=== PATIENT | female | born 1945 | race Caucasian/White ===

== ENCOUNTER 2020-12-30 05:40 | Inpatient (IN) | payer MEDICARE ==
[2020-12-30] MEDS ORDERED: Lactated Ringers 1,000 ML IV SCH (06:00)
[2020-12-30] MEDS ORDERED: ceFAZolin 2 GM in Premix Bag 1 BAG IV ONE (06:00)
[2020-12-30] MEDS: Nozin Nasal Sanitizer NASBOTH SCH ×2 (06:18→21:02)
[2020-12-30] MEDS ORDERED: Povidone-Iodine 10% Soln 118.25 ML Bottle ONE (06:51)
[2020-12-30] MEDS ORDERED: Midazolam 1 MG/ML 2 ML SDV ONE (07:20)
[2020-12-30] MEDS ORDERED: Propofol 200 MG/20 ML SDV ONE (07:20)
[2020-12-30] MEDS ORDERED: fentaNYL 100 MCG/2 ML SDV ONE (07:20)
[2020-12-30] MEDS ORDERED: Lactated Ringers 1,000 ML ONE (08:17)
[2020-12-30] MEDS ORDERED: Acetaminophen/HYDROcodone 325-5 MG Tab PO PRN (09:36)
[2020-12-30] MEDS ORDERED: Ondansetron 4 MG/2 ML SDV IVPUSH PRN (09:36)
[2020-12-30] MEDS ORDERED: Acetaminophen 325 MG Tab PO PRN (09:36)
[2020-12-30] MEDS ORDERED: Morphine 2 MG/ML SYRINGE IVPUSH PRN (09:36)
[2020-12-30] MEDS ORDERED: Ketorolac 30 MG/ML SDV IVPUSH PRN (09:36)
[2020-12-30] MEDS ORDERED: Magnesium Hydroxide 400 MG/5 ML Susp 30 ML Cup PO PRN (09:36)
[2020-12-30] MEDS ORDERED: Prochlorperazine 5 MG in Sodium Chloride 0.9% 50 ML IV PRN (09:43)
[2020-12-30] MEDS ORDERED: ceFAZolin 1 GM in Sodium Chloride 0.9% 50 ML IV SCH (09:45)
[2020-12-30] MEDS: Acetaminophen/oxyCODONE 325-5 MG Tab PO PRN ×3 (11:43→21:01)
[2020-12-30] MEDS ORDERED: Metoclopramide 10 MG/2 ML SDV IV PRN (12:12)
[2020-12-30] MEDS: Sodium Chloride 0.9% 1,000 ML IV SCH (14:38)
[2020-12-30] MEDS: ceFAZolin 1 GM in Premix Bag 1 BAG IV SCH (16:14)
[2020-12-30] MEDS ORDERED: Nozin Nasal Sanitizer NASBOTH SCH (21:00)
[2020-12-30] MEDS: Docusate Sodium 100 MG Cap PO SCH (21:00)
[2020-12-30] MEDS ORDERED: Docusate Sodium 100 MG Cap PO SCH (21:00)
[2020-12-31] MEDS: Sodium Chloride 0.9% 1,000 ML IV SCH (00:14)
[2020-12-31] MEDS: ceFAZolin 1 GM in Premix Bag 1 BAG IV SCH ×2 (01:02→09:07)
[2020-12-31] MEDS: Acetaminophen/oxyCODONE 325-5 MG Tab PO PRN ×5 (02:43→21:48)
[2020-12-31] MEDS: Nozin Nasal Sanitizer NASBOTH SCH ×2 (08:01→21:47)
[2020-12-31] MEDS: Enoxaparin 30 MG/0.3 ML Syringe SUBCUT SCH (08:02)
[2020-12-31] MEDS: Hydroxychloroquine 200 MG Tab PO SCH (08:04)
[2020-12-31] MEDS: Docusate Sodium 100 MG Cap PO SCH ×2 (08:04→21:47)
--- NOTE | 2020-12-31 08:40 | PCM.SURGPN ---
- General Info Date of Service: 12/31/20 Date of Surgery/Procedure: 12/30/20 POD#: 1 Post-Op Diagnosis: knee osteoarthritis Admission Diagnosis/Problem: Knee joint operation Functional Status: Reports: Pain Controlled, Tolerating Diet - Review of Systems General: Denies: Fever, Fatigue, Chills HEENT: Denies: Visual Changes Pulmonary: Denies: Shortness of Breath Cardiovascular: Denies: Chest Pain Gastrointestinal: Denies: Nausea, Vomiting Musculoskeletal: Reports: Leg Pain (left ), Joint Pain (left knee ), Joint Swelling (left knee ) Skin: Reports: Bruising Neurological: Reports: No Symptoms Psychiatric: Reports: No Symptoms - Patient Data Vitals - Most Recent: Last Vital Signs Temp 97.3 F 12/31/20 07:10 Pulse 69 12/31/20 07:10 Resp 18 12/31/20 07:10 BP 141/59 H 12/31/20 07:10 Pulse Ox 100 12/31/20 07:10 Weight - Most Recent: 144 lb I&O - Last 24 Hours: Intake & Output 12/30/20 12/31/20 12/31/20 22:59 06:59 14:59 Intake Total 1295 1692 Output Total 125 310 Balance 1170 1382 Lab Results Last 24 Hrs: Laboratory Results - last 24 hr 12/31/20 Range/Units 04:25 WBC 7.1 (4.5-11.0) K/uL RBC 3.40 (3.30-5.50) M/uL Hgb 10.3 L (12.0-15.0) g/dL Hct 32.0 L (36.0-48.0) % MCV 94 (80-98) fL MCH 30 (27-31) pg MCHC 32 (32-36) % Plt Count 148 L (150-400) K/uL Med Orders - Current: Current Medications Acetaminophen (Acetaminophen 325 Mg Tab) 650 mg PO Q4H PRN PRN Reason: Pain/Fever Hydrocodone Bitart/Acetaminophen (Acetaminophen/Hydrocodone 325-5 Mg Tab) 1 tab PO Q4H PRN PRN Reason: Pain (mild 1-3) Bandage/Support Products (Nozin Nasal Wet End Helper) 1 applic NASBOTH BID [facility] Stop: 01/05/21 21:01 Last Admin: 12/31/20 08:01 Dose: 1 applic Documented by: Docusate Sodium (Docusate Sodium 100 Mg Cap) 100 mg PO BID [facility] [place] Last Admin: 12/31/20 08:04 Dose: 100 mg Documented by: Enoxaparin Sodium (Enoxaparin 30 Mg/0.3 Ml Syringe) 30 mg SUBCUT DAILY [facility] [place] Last Admin: 12/31/20 08:02 Dose: 30 mg Documented by: Hydroxychloroquine Sulfate (Hydroxychloroquine 200 Mg Tab) 200 mg PO DAILY [facility] [place] Last Admin: 12/31/20 08:04 Dose: 200 mg Documented by: Sodium Chloride (Normal Saline) 1,000 mls @ 125 mls/hr IV ASDIRECTED [facility] [place] Last Admin: 12/31/20 00:14 Dose: 125 mls/hr Documented by: Cefazolin Sodium/Dextrose 1 gm (/ Premix) 50 mls @ 100 mls/hr IV Q8H [facility] [place] Stop: 12/31/20 09:29 Last Admin: 12/31/20 01:02 Dose: 100 mls/hr Documented by: Ketorolac Tromethamine (Ketorolac 30 Mg/Ml Sdv) 15 mg IVPUSH Q8H PRN PRN Reason: Breakthrough Pain Last Admin: 12/30/20 19:34 Dose: 15 mg Documented by: Magnesium Hydroxide (Magnesium Hydroxide 400 Mg/5 Ml Susp 30 Ml Cup) 30 ml PO BID PRN PRN Reason: Constipation Metoclopramide HCl (Metoclopramide 10 Mg/2 Ml Sdv) 5 mg IV Q6HR PRN PRN Reason: Nausea Morphine Sulfate (Morphine 2 Mg/Ml Syringe) 1 mg IVPUSH Q1H PRN PRN Reason: Breakthrough Pain Oxycodone/Acetaminophen (Acetaminophen/Oxycodone 325-5 Mg Tab) 1 - 2 tab PO Q4H PRN PRN Reason: Pain Last Admin: 12/31/20 07:11 Dose: 1 tab Documented by: Discontinued Medications Docusate Sodium (Docusate Sodium 100 Mg Cap) 100 mg PO BID [facility] [place] Enoxaparin Sodium (Enoxaparin 30 Mg/0.3 Ml Syringe) 30 mg SUBCUT DAILY [facility] [place] Fentanyl (Fentanyl 100 Mcg/2 Ml Sdv) Confirm Administered Dose 100 mcg .ROUTE .STK-MED ONE Stop: 12/30/20 07:21 Hydroxychloroquine Sulfate (Hydroxychloroquine 200 Mg Tab) 200 mg PO DAILY [facility] [place] Lactated Ringer's (Ringers, Lactated) 1,000 mls @ 75 mls/hr IV ASDIRECTED [facility] [place] Last Admin: 12/30/20 06:40 Dose: 75 mls/hr Documented by: Cefazolin Sodium/Dextrose 2 gm (/ Premix) 50 mls @ 100 mls/hr IV ONETIME ONE Stop: 12/30/20 06:29 Last Admin: 12/30/20 07:52 Dose: 100 mls/hr Documented by: Lactated Ringer's (Ringers, Lactated) Confirm Administered Dose 1,000 mls @ as directed .ROUTE .STK-MED ONE Stop: 12/30/20 08:18 Cefazolin Sodium 1 gm/ Sodium (Chloride) 50 mls @ 200 mls/hr IV Q8H [facility] [place] Stop: 12/31/20 01:59 Last Admin: 12/30/20 10:51 Dose: Not Given Documented by: Prochlorperazine Edisylate 5 (mg/ Sodium Chloride) 51 mls @ 150 mls/hr IV Q6H PRN PRN Reason: Nausea/Vomiting Last Admin: 12/30/20 12:15 Dose: 150 mls/hr Documented by: Midazolam HCl (Midazolam 1 Mg/Ml 2 Ml Sdv) Confirm Administered Dose 2 mg .ROUTE .STK-MED ONE Stop: 12/30/20 07:21 Ondansetron HCl (Ondansetron 4 Mg/2 Ml Sdv) 4 mg IVPUSH Q4H PRN PRN Reason: Nausea/Vomiting Povidone Iodine (Povidone-Iodine 10% Soln 118.25 Ml Bottle) Confirm Administered Dose 1 ml .ROUTE .STK-MED ONE Stop: 12/30/20 06:52 Last Admin: 12/30/20 09:15 Dose: 1 ml Documented by: Propofol (Propofol 200 Mg/20 Ml Sdv) Confirm Administered Dose 200 mg .ROUTE .STK-MED ONE Stop: 12/30/20 07:21 - Exam Wound/Incisions: Healing Well, Drainage (dried drainage ) Quality Assessment: Urine Catheter, DVT Prophylaxis General: Alert, Oriented, Cooperative, No Acute Distress Extremities: Normal Capillary Refill, Pedal Edema, Joint Swelling (left knee ), Leg Pain (left ), Limited Range of Motion (left knee ), Increased Warmth (mild, left knee ), Other (L tibial pulse, 2+). No: Tea's Sign Skin: Warm, Dry, Intact, Ecchymosis, Other (incision well approximated with no surrounding erythema. Dried drainage on steristrips, no active drainage from incision. ) Neurological: No New Focal Deficit Psy/Mental Status: Alert, Normal Affect, Normal Mood Sepsis Event Note - Evaluation Sepsis Screening Result: No Definite Risk - Focused Exam Vital Signs: Vital Signs Temp Pulse Resp BP Pulse Ox 12/31/20 07:10 97.3 F 69 18 141/59 H 100 12/31/20 02:42 99.0 F 73 18 132/58 L 97 12/30/20 23:21 99.3 F 71 18 140/60 92 L 12/30/20 21:04 99.5 F - Problem List & Annotations (1) Status post total left knee replacement SNOMED Code(s): 1139439539940, 1004887593972 Code(s): Z96.652 - PRESENCE OF LEFT ARTIFICIAL KNEE JOINT Status: Acute Current Visit: Yes (2) Postoperative anemia SNOMED Code(s): 746830560, 593894299 Code(s): D64.9 - ANEMIA, UNSPECIFIED Status: Acute Current Visit: Yes - Problem List Review Problem List Initiated/Reviewed/Updated: Yes - My Orders Last 24 Hours: Active Orders 24 hr Category Date Time Status Patient Status [ADT] Routine ADT 12/30/20 09:36 Active Ambulate [RC] QID Care 12/30/20 09:36 Active Antiembolic Devices [RC] .Routine Care 12/30/20 09:36 Active Head of Bed Elevation [RC] ASDIRECTED Care 12/30/20 09:36 Active Intake and Output [RC] QSHIFT Care 12/30/20 09:36 Active May Shower [RC] ASDIRECTED Care 12/30/20 09:36 Active Neurovascular Check [RC] Q4H Care 12/30/20 09:36 Active Notify Provider Vital Signs [RC] ASDIRECTED Care 12/30/20 09:36 Active Oxygen Therapy [RC] PRN Care 12/30/20 09:36 Active RT Incentive Spirometry [RC] Q1HWA Care 12/30/20 09:36 Active Up to Chair [RC] QID Care 12/30/20 09:36 Active Up to Chair [RC] QID Care 12/30/20 09:36 Active VTE/DVT Education [RC] Click to Edit Care 12/30/20 09:36 Active Vital Signs [RC] Q4H Care 12/30/20 09:36 Active Wound Care [RC] Q12H Care 12/30/20 09:36 Active Consult to Case Management/Distribution Center Assistant [CONS] Cons 12/30/20 09:36 Active Routine OT Evaluation and Treatment [CONS] Routine Cons 12/30/20 09:36 Active PT Evaluation and Treatment [CONS] Routine Cons 12/30/20 09:36 Active PT Evaluation and Treatment [CONS] Routine Cons 12/30/20 09:36 Active Regular Diet [DIET] Diet 12/30/20 Breakfast Active Knee 1V or 2V Lt [CR] Routine Exams 12/30/20 09:35 Taken Acetaminophen [TylenoL] Med 12/30/20 09:36 Active 650 mg PO Q4H PRN Acetaminophen/HYDROcodone [[place] 325-5 MG] Med 12/30/20 09:36 Active 1 tab PO Q4H PRN Acetaminophen/oxyCODONE [Percocet 325-5 MG] Med 12/30/20 09:36 Active 1 - 2 tab PO Q4H PRN Docusate Sodium [Colace] Med 12/30/20 21:00 Active 100 mg PO BID Enoxaparin [Lovenox] Med 12/31/20 09:00 Active 30 mg SUBCUT DAILY Hydroxychloroquine [Plaquenil] Med 12/31/20 09:00 Active 200 mg PO DAILY Ketorolac [Toradol] Med 12/30/20 09:36 Active 15 mg IVPUSH Q8H PRN Magnesium Hydroxide [Milk of Magnesia] Med 12/30/20 09:36 Active 30 ml PO BID PRN Metoclopramide [Reglan] Med 12/30/20 12:12 Active 5 mg IV Q6HR PRN Morphine Med 12/30/20 09:36 Active 1 mg IVPUSH Q1H PRN Sodium Chloride 0.9% [Normal Saline] 1,000 ml Med 12/30/20 09:45 Active IV ASDIRECTED ceFAZolin [Ancef] 1 gm Med 12/30/20 17:00 Active Premix Bag 1 bag IV Q8H Antiembolic Hose [OM.PC] Routine Ot 12/30/20 09:36 Ordered DVT/VTE Prophylaxis Reflex [OM.PC] Routine Ot 12/30/20 09:36 Ordered Ice Therapy [OM.PC] Per Unit Routine Ot 12/30/20 09:36 Ordered Medication Continuation Instructions [OM.PC] Per Unit Ot 12/30/20 09:36 Ordered Routine Oral Care [OM.PC] Routine Ot 12/30/20 09:36 Ordered Sequential Compression Device [OM.PC] Routine Ot 12/30/20 09:36 Ordered Weight bearing status [OM.PC] Routine Ot 12/30/20 09:44 Ordered Resuscitation Status Routine Resus Stat 12/30/20 09:36 Ordered Medication Orders Acetaminophen (Acetaminophen 325 Mg Tab) 650 mg PO Q4H PRN PRN Reason: Pain/Fever Hydrocodone Bitart/Acetaminophen (Acetaminophen/Hydrocodone 325-5 Mg Tab) 1 tab PO Q4H PRN PRN Reason: Pain (mild 1-3) Bandage/Support Products (Nozin Nasal Wet End Helper) 1 applic NASBOTH BID [facility] [place] Stop: 01/05/21 21:01 Last Admin: 12/31/20 08:01 Dose: 1 applic Documented by: Admin: 12/30/20 21:02 Dose: 1 applic Documented by: Admin: 12/30/20 06:18 Dose: 1 applic Documented by: SUDHEER Docusate Sodium (Docusate Sodium 100 Mg Cap) 100 mg PO BID [facility] [place] Last Admin: 12/31/20 08:04 Dose: 100 mg Documented by: Admin: 12/30/20 21:00 Dose: 100 mg Documented by: PADMINI Enoxaparin Sodium (Enoxaparin 30 Mg/0.3 Ml Syringe) 30 mg SUBCUT DAILY [facility] [place] Last Admin: 12/31/20 08:02 Dose: 30 mg Documented by: JOSELIN Hydroxychloroquine Sulfate (Hydroxychloroquine 200 Mg Tab) 200 mg PO DAILY [facility] [place] Last Admin: 12/31/20 08:04 Dose: 200 mg Documented by: JOSELIN Sodium Chloride (Normal Saline) 1,000 mls @ 125 mls/hr IV ASDIRECTED [facility] [place] Last Admin: 12/31/20 00:14 Dose: 125 mls/hr Documented by: Infusion: 12/30/20 22:38 Dose: 125 mls/hr Documented by: Admin: 12/30/20 14:38 Dose: 125 mls/hr Documented by: TK Cefazolin Sodium/Dextrose 1 gm (/ Premix) 50 mls @ 100 mls/hr IV Q8H [facility] Stop: 12/31/20 09:29 Last Admin: 12/31/20 01:02 Dose: 100 mls/hr Documented by: Infusion: 12/30/20 16:44 Dose: 100 mls/hr Documented by: Admin: 12/30/20 16:14 Dose: 100 mls/hr Documented by: SHERI Ketorolac Tromethamine (Ketorolac 30 Mg/Ml Sdv) 15 mg IVPUSH Q8H PRN PRN Reason: Breakthrough Pain Last Admin: 12/30/20 19:34 Dose: 15 mg Documented by: PADMINI Magnesium Hydroxide (Magnesium Hydroxide 400 Mg/5 Ml Susp 30 Ml Cup) 30 ml PO BID PRN PRN Reason: Constipation Metoclopramide HCl (Metoclopramide 10 Mg/2 Ml Sdv) 5 mg IV Q6HR PRN PRN Reason: Nausea Morphine Sulfate (Morphine 2 Mg/Ml Syringe) 1 mg IVPUSH Q1H PRN PRN Reason: Breakthrough Pain Oxycodone/Acetaminophen (Acetaminophen/Oxycodone 325-5 Mg Tab) 1 - 2 tab PO Q4H PRN PRN Reason: Pain Last Admin: 12/31/20 07:11 Dose: 1 tab Documented by: Admin: 12/31/20 02:43 Dose: 1 tab Documented by: Admin: 12/30/20 21:01 Dose: 2 tab Documented by: Admin: 12/30/20 16:01 Dose: 2 tab Documented by: Admin: 12/30/20 11:43 Dose: 2 tab Documented by: SHERI - Assessment Assessment (Free Text/Narrative):: Patient is a pleasant 75-year-old female, status post left total knee replacement, postop day #1. Patient tolerated surgery well with no acute events overnight. Patient remains hemodynamically stable. Postop day #1 hemoglobin declined to 10.3. Patient has been asymptomatic with this, denied lightheadedness, vision changes, nor shortness of breath. Patient also denied subjective fevers, chills, chest pain, nor palpitations. Pain has been relatively well controlled on current regimen. Notes she slept fairly well last night without disruption from left knee pain. Patient denied nausea or emesis. Does endorse decreased appetite, but accepting of a protein shake this morning. Patient did transfer from bed to chair following surgery yesterday afternoon with x1 assist and four-wheel walker. Has not ambulated further than transfer from bed to chair. Denied numbness or tingling to left lower extremity. Denied calf pain. Left knee dressing did have dried drainage on urvashi wrap this morning. Dressing was removed, left knee cleaned, and new dressing applied. Patient requires inpatient status at this time to progress ambulation abilities and functional mobility of left lower extremity. Patient also needs to safely complete stairs, as she does have a flight of stairs within home to reach her bedroom. Additionally, patient requires further monitoring of postoperative anemia. Plan: * Patient to participate in physical and occupational therapy sessions daily while in the hospital. * Pending progress with physical therapy this morning on ambulation distance, may remove Dunn catheter if patient is able to ambulate safely to the bathroom. * Post-operative anemia stable at this time. Will continue to monitor for symptoms and recheck CBC if patient becomes symptomatic. * Discontinue IV maintenance fluids. * Continue with current pain regimen. * Continue with bilateral lower extremity SCDs for mechanical DVT/VTE prophylaxi s and 30 mg subcutaneous Lovenox for chemical DVT/VTE prophylaxis. * Continue with every 4 hours vital monitoring assessment. * Anticipate discharge to home with outpatient physical therapy services when patient is medically stable and functional mobility of left lower extremity improves. Patient has already arranged outpatient physical therapy services with [facility].
[2020-12-31] MEDS ORDERED: Hydroxychloroquine 200 MG Tab PO SCH (09:00)
[2020-12-31] MEDS ORDERED: Enoxaparin 30 MG/0.3 ML Syringe SUBCUT SCH (09:00)
--- NOTE | 2020-12-31 13:26 | CRLCR ---
For Patients: As a result of the Cures Act, medical imaging exams and procedure reports are released immediately into your electronic medical record. You may view this report before your referring provider. If you have questions, please contact your health care provider. INDICATION: Status post left total knee arthroplasty TECHNIQUE: Knee radiograph 2 views left on 3 films COMPARISON: 11/14/2019 FINDINGS: Bone: No acute fractures or aggressive bone lesions are identified. Joint: The patient is status post a total knee arthroplasty with patellar resurfacing. No radiographic evidence of asymmetric polyethylene wear, prosthetic loosening or infection is seen. No significant knee effusion is seen. Soft tissue: Anterior skin, subcutaneous gas and joint gas are present from recent surgery. No radiopaque foreign bodies are seen. IMPRESSION: 1. There is an unremarkable postoperative appearance of the knee arthroplasty. Dictated by: Steve Lugo MD @ 12/31/2020 13:25:14 (Electronically Signed)
[2021-01-01] MEDS: Acetaminophen/oxyCODONE 325-5 MG Tab PO PRN ×2 (08:41→12:56)
--- NOTE | 2021-01-01 09:24 | PCM.DCSUM1 ---
Discharge Summary - Hospital Course HPI Initial Comments: Libby 75 y/o female with a history of left knee osteoarthritis. Symptoms were refractory to conservative treatments and she elected to undergo left total knee arthroplasty. Surgery performed on 12/30/20. Patient tolerated surgery well with no complications. No acute events in the post-operative hospitalization period. Diagnosis: Stroke: No Modified Aura Scale: No Symptoms at All Modified Aura Scale Score: 0 - Discharge Data Discharge Date: 01/01/21 Discharge Disposition: Home, Self-Care 01 Condition: Good - Referral to Home Health Date of Face to Face Encounter: 01/01/21 Primary Care Physician: Erica Hurtado MD - Discharge Diagnosis/Problem(s) (1) Status post total left knee replacement SNOMED Code(s): 1658568879015, [id number] ICD Code: Z96.652 - PRESENCE OF LEFT ARTIFICIAL KNEE JOINT Status: Acute Current Visit: Yes (2) Postoperative anemia SNOMED Code(s): 822665146, [id number] ICD Code: D64.9 - ANEMIA, UNSPECIFIED Status: Acute Current Visit: Yes - Patient Summary/Data Operative Procedure(s) Performed: left total knee arthroplasty Consults: Consultations 12/30/20 09:36 Consult to Case Management/Therapeutic Consultant [CONS] Routine Comment: Physician Instructions: Service(s) to be Consulted: Case Management Reason for Consult: Plan for Discharge Special Instructions: anticipate dc to home with outpatient PT OT Evaluation and Treatment [CONS] Routine Please Evaluate and Treat. OT Reason for Consult: ADL's Special Instructions: s/p L TKA. Progress functional mobility of LLE. This query below is only for informational purposes and is not editable. PT Evaluation and Treatment [CONS] Routine Please Evaluate and Treat. PT Reason for Consult: Post op Ortho Surgery Special Instructions: s/p L TKA. May WBAT. Progress ROM and strengthening to LLE. Patient does have a flight of stairs at home, please work with stairs prior to dc. This query below is only for informational purposes and is not editable. PT Evaluation and Treatment [CONS] Routine Please Evaluate and Treat. PT Reason for Consult: Post op Ortho Surgery Knee Pending Discharge: Yes, 1- 2 days Special Instructions: Schedule first outpatient PT appointment in 3-5 day post discharge. This query below is only for informational purposes and is not editable. Hospital Course: Patient is a pleasant 75 y/o female, s/p left total knee arthroplasty, POD#2. Patient tolerated surgery well with no complications. Patient remained hemodynam ically stable in the post-operative hospitalization period. Did have a few elevated blood pressure readings, likely attributed to pain, but all other vitals remained within acceptable limits. Post-operative HgB declined to 10.3. Patient was asymptomatic with this; denied lightheadedness with positional changes, dyspnea, nor vision changes. Patient also denied subjective fevers, chills, and fatigue. Pain has been well controlled throughout hospitalization with Percocet. Patient has had decreased appetite. Had some nausea the afternoon of surgery, none thereafter. Participated in physical therapy services daily. Ambulation abilities progressed nicely, walking up to 132 ft with FWW and SBA prior to discharge. Is able to transfer from bed to chair with FWW. Was fitted with a proper FWW for home use. Did complete stairs safely prior to discharge. Requires minimal assistance with ADLs. Dunn catheter was removed POD#1. IV maintenance fluids were discontinued POD#1. Did have dried drainage on BRYON wrap morning of POD#1, dressing changes performed POD#1 and #2. Plan: * Discharge to home today. Does have daughter at home for support through next Wednesday, and will be present after. Outpatient PT orders faxed to [facility] per patients request. * Prescription sent to patients preferred pharmacy for pain medication: 5mg- 325mg Percocet, 1-2 tabs PO q6 hrs prn for pain. * Encouraged to continue with stool softener while on opioid pain medication. * Continue to take Nozin spray BID. * Educated to take 1 aspirin BID for DVT/VTE prophylaxis for the following month. * Educated on warning signs of DVT/VTE and SSI; any concerns, please contact the clinic or visit your local ER. * May shower; remove dressing, leave paper tapes on and let water run over the top. They will fall off in 5-7 days. Do not vigorously scrub incision, no submerging incision in bath water. Do not need to place dressing over incision, but may choose to do so if Steristrips are catching on clothing. * Follow up apt scheduled with ortho clinic in 2 weeks. Call if any concerns or questions arise prior to scheduled apt. - Patient Instructions Diet: Usual Diet as Tolerated Activity: Apply Ice, Full Weight Bearing Driving: Do Not Drive Showering/Bathing: May Shower Wound/Incision Care: Keep Operative Site/Wound Site Clean and Dry Notify Provider of: Fever, Increased Pain, Swelling and Redness, Drainage - Discharge Plan *PRESCRIPTION DRUG MONITORING PROGRAM REVIEWED*: Yes *COPY OF PRESCRIPTION DRUG MONITORING REPORT IN PATIENT [place]: Not Applicable Home Medications: Home Meds Aspirin [Ecotrin EC] 81 mg PO DAILY 02/05/16 [History] Denosumab [Prolia] 60 mg SQ .EVERY 6 MONTHS 10/09/20 [History] Hydroxychloroquine Sulfate [Plaquenil] 200 mg PO DAILY 10/09/20 [History] Multivitamin with Minerals [Multiple Vitamin] 1 tab PO DAILY 10/09/20 [History] Celecoxib 200 mg PO DAILY 12/25/20 [History] Oxygen Therapy Mode: Room Air Patient Handouts: Fall Prevention in the Home, Adult, [id number], Total Knee Replacement, Care After, Preventing Problems After Surgery, How to Prevent Constipation After Surgery Referrals: Chao Rabago PA [Ordering Only Provider] - 01/14/21 1:00 pm (Please arrivve 15 minutes early to register for your appointment.) - Discharge Summary/Plan Comment DC Time >30 min.: No Total # of Minutes for Discharge Time: 15 Discharge Summary/Plan Comment: -Discharge to home today. Does have daughter and spouse at home for support. Outpatient PT arranged at [facility] -Prescription sent to patients preferred pharmacy for pain medication: 5mg-325mg Percocet, 1-2 tabs PO q6 hrs prn for pain -Encouraged to continue with stool softener while on opioid pain medication -Continue to take Nozin spray BID -Educated to take 1 aspirin BID for DVT/VTE prophylaxis for the following month -Educated on warning signs of DVT/VTE and SSI; any concerns, please contact the clinic or visit your local ER -Blood pressures have been slightly elevated in the post-operative period. Encouraged to monitor BP at home, if remains elevated over the next week, should follow up with PCP. -You may shower; remove dressing, leave paper tapes on and let water run over the top. They will fall off in 5-7 days. Do not vigorously scrub incision, no submerging incision in bath water. Do not need to place dressing over incision, but may choose to do so if Steristrips are catching on clothing -Follow up apt scheduled with ortho clinic in 2 weeks. Encouraged to call with any concerns or questions that arise prior to scheduled apt - General Info Date of Service: 01/01/21 Admission Dx/Problem (Free Text: left knee osteoarthritis, s/p LTKA Functional Status: Reports: Pain Controlled, Tolerating Diet, Ambulating (with FWW ), Urinating - Review of Systems General: Denies: Fever, Malaise, Chills HEENT: Denies: Visual Changes Pulmonary: Denies: Shortness of Breath Cardiovascular: Denies: Chest Pain Gastrointestinal: Denies: Nausea, Vomiting Musculoskeletal: Reports: Leg Pain, Joint Pain (left knee ), Joint Swelling (left knee ) Skin: Reports: Bruising, Other (blisters along medial aspect of incision underneath steristrips ) Neurological: Reports: No Symptoms Psychiatric: Reports: No Symptoms - Patient Data Vitals - Most Recent: Last Vital Signs Temp 99.7 F 01/01/21 07:00 Pulse 72 01/01/21 07:00 Resp 16 01/01/21 07:00 BP 154/57 H 01/01/21 07:00 Pulse Ox 93 L 01/01/21 07:00 Weight - Most Recent: 144 lb I&O - Last 24 hours: Intake & Output 12/31/20 01/01/21 01/01/21 22:59 06:59 14:59 Intake Total 250 300 Output Total 300 Balance -300 250 300 Med Orders - Current: Current Medications Acetaminophen (Acetaminophen 325 Mg Tab) 650 mg PO Q4H PRN PRN Reason: Pain/Fever Hydrocodone Bitart/Acetaminophen (Acetaminophen/Hydrocodone 325-5 Mg Tab) 1 tab PO Q4H PRN PRN Reason: Pain (mild 1-3) Bandage/Support Products (Nozin Nasal Core Assembly Supervisor) 1 applic NASBOTH BID [facility] Stop: 01/05/21 21:01 Last Admin: 12/31/20 21:47 Dose: 1 applic Documented by: Docusate Sodium (Docusate Sodium 100 Mg Cap) 100 mg PO BID [facility] Last Admin: 12/31/20 21:47 Dose: 100 mg Documented by: Enoxaparin Sodium (Enoxaparin 30 Mg/0.3 Ml Syringe) 30 mg SUBCUT DAILY [facility] Last Admin: 12/31/20 08:02 Dose: 30 mg Documented by: Hydroxychloroquine Sulfate (Hydroxychloroquine 200 Mg Tab) 200 mg PO DAILY [facility] Last Admin: 12/31/20 08:04 Dose: 200 mg Documented by: Sodium Chloride (Normal Saline) 1,000 mls @ 125 mls/hr IV ASDIRECTED [facility] Last Admin: 12/31/20 00:14 Dose: 125 mls/hr Documented by: Ketorolac Tromethamine (Ketorolac 30 Mg/Ml Sdv) 15 mg IVPUSH Q8H PRN PRN Reason: Breakthrough Pain Stop: 01/04/21 09:37 Last Admin: 12/30/20 19:34 Dose: 15 mg Documented by: Magnesium Hydroxide (Magnesium Hydroxide 400 Mg/5 Ml Susp 30 Ml Cup) 30 ml PO BID PRN PRN Reason: Constipation Metoclopramide HCl (Metoclopramide 10 Mg/2 Ml Sdv) 5 mg IV Q6HR PRN PRN Reason: Nausea Morphine Sulfate (Morphine 2 Mg/Ml Syringe) 1 mg IVPUSH Q1H PRN PRN Reason: Breakthrough Pain Oxycodone/Acetaminophen (Acetaminophen/Oxycodone 325-5 Mg Tab) 1 - 2 tab PO Q4H PRN PRN Reason: Pain Last Admin: 01/01/21 08:41 Dose: 2 tab Documented by: Discontinued Medications Docusate Sodium (Docusate Sodium 100 Mg Cap) 100 mg PO BID [facility] Enoxaparin Sodium (Enoxaparin 30 Mg/0.3 Ml Syringe) 30 mg SUBCUT DAILY [facility] Fentanyl (Fentanyl 100 Mcg/2 Ml Sdv) Confirm Administered Dose 100 mcg .ROUTE .[facility] ONE Stop: 12/30/20 07:21 Hydroxychloroquine Sulfate (Hydroxychloroquine 200 Mg Tab) 200 mg PO DAILY [facility] Lactated Ringer's (Ringers, Lactated) 1,000 mls @ 75 mls/hr IV ASDIRECTED [facility] Last Admin: 12/30/20 06:40 Dose: 75 mls/hr Documented by: Cefazolin Sodium/Dextrose 2 gm (/ Premix) 50 mls @ 100 mls/hr IV ONETIME ONE Stop: 12/30/20 06:29 Last Admin: 12/30/20 07:52 Dose: 100 mls/hr Documented by: Lactated Ringer's (Ringers, Lactated) Confirm Administered Dose 1,000 mls @ as directed .ROUTE .[facility] ONE Stop: 12/30/20 08:18 Cefazolin Sodium 1 gm/ Sodium (Chloride) 50 mls @ 200 mls/hr IV Q8H [facility] Stop: 12/31/20 01:59 Last Admin: 12/30/20 10:51 Dose: Not Given Documented by: Prochlorperazine Edisylate 5 (mg/ Sodium Chloride) 51 mls @ 150 mls/hr IV Q6H PRN PRN Reason: Nausea/Vomiting Last Admin: 12/30/20 12:15 Dose: 150 mls/hr Documented by: Cefazolin Sodium/Dextrose 1 gm (/ Premix) 50 mls @ 100 mls/hr IV Q8H [facility] Stop: 12/31/20 09:29 Last Admin: 12/31/20 09:07 Dose: 100 mls/hr Documented by: Midazolam HCl (Midazolam 1 Mg/Ml 2 Ml Sdv) Confirm Administered Dose 2 mg .ROUTE .[facility] ONE Stop: 12/30/20 07:21 Ondansetron HCl (Ondansetron 4 Mg/2 Ml Sdv) 4 mg IVPUSH Q4H PRN PRN Reason: Nausea/Vomiting Povidone Iodine (Povidone-Iodine 10% Soln 118.25 Ml Bottle) Confirm Administered Dose 1 ml .ROUTE .[facility] ONE Stop: 12/30/20 06:52 Last Admin: 12/30/20 09:15 Dose: 1 ml Documented by: Propofol (Propofol 200 Mg/20 Ml Sdv) Confirm Administered Dose 200 mg .ROUTE .[facility] ONE Stop: 12/30/20 07:21 - Exam Quality Assessment: Reports: DVT Prophylaxis General: Reports: Alert, Oriented, Cooperative, No Acute Distress Extremities: Normal Capillary Refill, Pedal Edema, Joint Swelling (left knee ), Leg Pain (left ), Limited Range of Motion (left knee due to postoperative swelling and pain ). No: Tea's Sign Skin: Reports: Dry, Intact, Ecchymosis Wound/Incisions: Reports: Healing Well, Dressing Dry and Intact, No Drainage, Other (steristrip blisters along medial aspect of incision )
[2021-01-01] MEDS: Enoxaparin 30 MG/0.3 ML Syringe SUBCUT SCH (09:44)
[2021-01-01] MEDS: Hydroxychloroquine 200 MG Tab PO SCH (09:44)
[2021-01-01] MEDS: Docusate Sodium 100 MG Cap PO SCH (09:44)
[2021-01-01] MEDS: Nozin Nasal Sanitizer NASBOTH SCH (09:44)
--- NOTE | 2021-01-10 11:14 | OR ---
DATE OF PROCEDURE: 12/30/2020 SURGEON: Robert Bennett MD PREOPERATIVE DIAGNOSIS: Osteoarthritis, left knee. POSTOPERATIVE DIAGNOSIS: Osteoarthritis, left knee. PROCEDURE PERFORMED: Left total knee arthroplasty using Mary Persona component with a size 5 narrow femur, size D tibia, 10 mm polyethylene and a 29 mm patella. BLEACH TESTER: SUZY Rodriguez ANESTHESIA: Spinal with sedation. INDICATION: Ryann Hopkins is a 75-year-old female with history of progressive pain in her left knee for the past year. She has failed conservative treatment and x-rays revealed osteoarthritis of the left knee with medial compartment collapse. Risks, benefits, potential complications of the procedure were discussed. DESCRIPTION OF PROCEDURE: After adequate anesthesia was obtained, the patient was placed supine with a tourniquet about the left upper thigh. Left leg was prepped and draped in a sterile fashion. Leg was exsanguinated and tourniquet inflated to 300 mmHg pressure. A longitudinal incision was made over the anterior aspect of the knee, carried down through the subcutaneous tissues, and a medial parapatellar arthrotomy was performed. A moderate effusion is present. The patella is partially everted. Soft tissues excised from around the periphery of the patella and the posterior aspect of the patella was resected with an oscillating saw. The knee was flexed, revealing complete articular cartilage loss from the medial femoral condyle. Intramedullary canal of the femur was drilled and the intramedullary guide was placed. Distal femoral cut was then made. The extramedullary tibial guide was placed, aligned, and secured to the tibia. Proximal tibia was resected with an oscillating saw. This portion was removed along with medial and lateral menisci. Attention was returned to the femur, which was sized to #5 component. #5 cutting jig was secured to the femur and the remaining cuts were made. Trial femur was placed, intercondylar notch was cut for a posterior cruciate-sacrificing component. The tibia was sized to a D and a trial plate was placed. This was secured with 2 pins and the tibial preparation was completed with the drill and punch. The trial 10 mm insert was utilized providing good balance in flexion and extension. The patella was resurfaced with a 29 mm button and tracks very well with no lateral release. The trials were then removed and the knee was thoroughly irrigated with pulse lavage. Bone surfaces were dried. The components were cemented in place. Excess cement was removed. The knee was held in full extension with the trial 10 mm insert as the cement cured. Knee was taken through range of motion again showing excellent tracking of the patella and very good balance in flexion and extension with full extension obtained. Trial was removed. The knee is irrigated. The final polyethylene was snapped into position. Knee was irrigated once again with a dilute Betadine solution which was left in place for 2-1/2 minutes and followed by pulse lavage irrigation. The capsule was closed with a #2 Ethibond in interrupted fashion. Skin was closed with 2-0 Vicryl and a running 3-0 Monocryl. Steri-Strips were applied. Light compressive dressing was placed. The patient tolerated procedure very well. There were no complications. Taken from the operating room in stable condition. Robert Bennett MD /[id number]
== END 2021-01-01 16:30 | disposition home or self-care (01) | DRG 470 ==
LOC: JP.SDS 05:40 → EDSTATUS 07:30 → JP.MS 09:36 → JP.SDS 12-31 09:12
PROVIDERS: ADMIT Specialist; ATTEND Specialist
PROC: 0SRD0J9 Replacement of Left Knee Joint with Synthetic Substitute, Cemented, Open Approach (ICD-10-PCS; principal; 2020-12-30)
DX: M17.12 Unilateral primary osteoarthritis, left knee (principal); M81.0 Age-related osteoporosis without current pathological fracture; D64.89 Other specified anemias; Z88.0 Allergy status to penicillin; Z79.82 Long term (current) use of aspirin; Z79.899 Other long term (current) drug therapy
CPT/HCPCS: 27447; 36415; 73560-LT; 85027; 97110-GP; 97116-GP; 97161-GP; 97165-GO; 97530-GP; 97535-GP; A9270-GY; C1713; C1776; J0690; J0780; J1650; J1885; J2250; J2704; J3010; J7030; J7120

== ENCOUNTER 2022-02-04 06:19 | Day surgery (SDC) | payer MEDICARE ==
[~2022-02-04 06:19] MED LIST: Nozin Nasal Sanitizer NASBOTH ONE
[2022-02-04] MEDS ORDERED: Lactated Ringers 1,000 ML IV SCH (06:30)
[2022-02-04] MEDS ORDERED: Bupivacaine 0.5% 30 ML SDV ONE (06:45)
[2022-02-04 06:55] LABS: ESTIMATED GFR 77 mL/min (>60)
[2022-02-04] MEDS ORDERED: fentaNYL 100 MCG/2 ML SDV ONE (07:48)
[2022-02-04] MEDS ORDERED: Midazolam 1 MG/ML 2 ML SDV ONE (07:48)
[2022-02-04] MEDS ORDERED: ceFAZolin 1 GM in Premix Bag 1 BAG IV ONE (07:58)
== END 2022-02-04 10:02 | disposition home or self-care (01) ==
LOC: JP.SDS 06:19
PROVIDERS: ATTEND Specialist
DX: G56.02 Carpal tunnel syndrome, left upper limb (principal); Z88.0 Allergy status to penicillin; Z96.659 Presence of unspecified artificial knee joint
CPT/HCPCS: 36415; 64721; 80053; 85027; A9270; J0690; J2250; J3010; J3490; J7120